=== PATIENT | female | born 1990 | race Caucasian/White ===

== ENCOUNTER 2024-01-20 19:36 | Emergency (ER) | payer OTHER, SELFPAY ==
[2024-01-20 19:37] VITALS: BMI 33.9
[2024-01-20 19:51] VITALS: BP 126/85; PULSE 88; RESP 18; TEMP 36.6; O2SAT 98
--- NOTE | 2024-01-20 19:56 | XR_ITS ---
Examination: OB Transvaginal ultrasound of the pelvis, complete Technique: Transvaginal sonographic images pelvis performed using hodges scale imaging Exam date and time: January 20, 2024 1011 hrs. Indications: Vaginal bleeding beginning 3 days ago worse today Findings: Uterus 9.8 x 4.9 x 5.3 cm anteverted No uterine mass or intrauterine gestation Endometrial stripe 0.8 cm Right ovary 2.5 x 2.3 x 1.9 cm arterial flow Left ovary 2.8 x 1.6 x 1.6 cm arterial flow No fluid in the cul-de-sac Impression: Negative examination.
--- NOTE | 2024-01-20 20:00 | PD.EDVAGBL ---
ED OB Contraction Preg RMI/HPI General Chief complaint: Vaginal Bleeding Stated complaint: VAGINAL BLEEDING APPROX 5 WEEKS PREG Time Seen by Provider: 01/20/24 19:55 Arrival date/time: 01/20/24 19:36 33F at approximately 5 weeks and with history of asthma presents to ED with 1 day of vaginal bleeding, but denies pain. Limitations: no limitations Related Data Home Medications ?Medication ?Instructions ?Recorded ?Confirmed vitamins-iron fumarate 27 1 tab PO QDAY 12/23/18 08/11/23 mg iron-folic acid 0.8 mg tablet ( Vitamin) Previous Rx's ?Medication ?Instructions ?Recorded hydrocortisone 2.5 % topical cream 1 applic LA BID PRN hemorrhoids 08/12/23 with perineal applicator #30 grams ibuprofen 600 mg tablet 600 mg PO Q6H PRN pain #30 tabs 08/12/23 Allergies Allergy/AdvReac Type Severity Reaction Status Date / Time No Known Allergies Allergy Verified 01/20/24 19:39 Review of Systems Review of Systems Systems Reviewed: All systems reviewed, normal except as documented Constitutional Constitutional: Reports system reviewed and no additional complaints, except as documented, Denies fever(s) and Denies headache(s) ENT Ears, Nose, Mouth, and Throat: Denies disequilibrium and Denies headache(s) Cardiovascular Cardiovascular: Reports system reviewed and no additional complaints, except as documented, Denies chest pain and Denies dyspnea Respiratory Respiratory: Reports system reviewed and no additional complaints, except as documented, Denies cough and Denies dyspnea Gastrointestinal Gastrointestinal: Reports system reviewed and no additional complaints, except as documented, Denies abdominal pain, Denies nausea and Denies vomiting Genitourinary Genitourinary: Reports as per HPI and Reports abnormal vaginal bleeding Neurologic Neurologic: Reports system reviewed and no additional complaints, except as documented, Denies confusion, Denies disequilibrium and Denies headache(s) Psychiatric Psychiatric: Denies confusion Past Medical History Past Medical History NEUROLOGIC: Negative Neurological Disorders CARDIAC: Negative Cardiac Disorders or Congestive Heart Failure RESPIRATORY: Positive Asthma; Negative Chronic Obstructive Pulmonary Disease (COPD) GASTROINTESTINAL: Positive Gastrointestinal Disorders and Obesity; Negative Hepatitis or Colorectal Cancer GENITOURINARY: Positive Genitourinary Disorders (UTI); Negative Renal Disease or Prostate Cancer REPRODUCTIVE: Negative Breast Cancer, Endometriosis, Genital Herpes, Gonorrhea, Pelvic Inflammatory Disease, Previous Pregnancies, Syphilis, Testicular Cancer or Uterine Prolapse MUSCULOSKELETAL: Negative Musculoskeletal Disorders, Bone Cancer or Carpal Tunnel Syndrome ENT: Negative Cataracts ENDOCRINE: Positive Endocrine Disorders (ADDENOIDS REMOVED.); Negative Diabetes Mellitus Type 1 or Diabetes Mellitus Type 2 HEMATOLOGIC: Negative Blood Disorders, Anemia or Clotting Problems OTHER HISTORY: Positive Hospitalization ([facility] REMOVAL AND DELIVERY); Negative Autoimmune Disease, Down Syndrome, Developmental Delay, Shingles, Falls, Blood Transfusions, Blood Transfusion Reaction, Anesthesia Reactions, Organ Transplant, Chemotherapy, Radiation Therapy, Hyperbaric Therapy, MRSA, VRSA, Vancomycin-Resistant Enterococci, Human Immunodeficiency Virus (HIV), Chicken Pox, Measles, Mumps, Rubella (Pashto Measles), Pertussis, Clostridium Difficile, Cancer, Breast Cancer, Cervical Cancer, Colorectal Cancer, Lung Cancer, Ovarian Cancer, Prostate Cancer or Testicular Cancer Family History FAMILY HISTORY: Positive Family Respiratory Disorders (BRONCHITIS, COPD, PNA- MOTHER), Family Cardiac Disorders (HEART ATTACK MATERNAL FAMILY) and Family Cancer (MOTHER BREAST CA); Negative Family Psychiatric Problems, Family Gastrointestinal Problems, Family Surgery or Family Anesthesia Reaction Surgical History SURGICAL: Positive Adenoidectomy; Negative Cardiac Surgery, Open Heart Surgery, Coronary Artery Bypass Graft, Valve Replacement, Vascular Surgery, Coronary Stent, Cardiac Catheterization, Pacemaker, Angiogram, Auto Implanted Cardiovert Defib, Carotid Endarterectomy, Endocrine Surgery, Thyroidectomy, Ear Surgery, Tympanostomy Tube, Eye Surgery, Nose Surgery, Oral Surgery, Tonsillectomy, Cochlear Implant, Corneal Transplant, Throat Surgery, Abdominal Surgery, Tracheostomy, Gastric Bypass Surgery, Gastrostomy, Bowel Surgery, Nephrectomy, Transurethral Resection, Joint Replacement, Amputation, Open Reduction Internal Fixation, Arthroscopy, Neurologic Surgery, Brain Shunt, Mastectomy, Lumpectomy, Hysterectomy, Tubal Ligation, Section or Organ Transplant Social History SMOKING STATUS: Never smoker ED Exam General Limitations: Present no limitations General appearance: Present alert and in no apparent distress Head Head exam: Present atraumatic Eye Eye exam: Present normal appearance, PERRL and EOMI ENT ENT exam: Present normal exam, normal oropharynx and mucous membranes moist Neck Neck exam: Present normal inspection, full ROM and trachea midline Chest Chest inspection: Present normal inspection and symmetric chest wall rise Respiratory Respiratory exam: Present normal lung sounds bilaterally Cardiovascular Cardiovascular exam: Present regular rate, normal rhythm and normal heart sounds Abdominal Exam Abdominal exam: Present soft and normal bowel sounds Extremities Exam Extremities exam: Present normal inspection and full ROM Back Exam Back exam: Present normal inspection and full ROM Neurological Exam Neurological exam: Present alert, oriented X3 and CN II-XII intact Psychiatric Psychiatric exam: Present normal affect and normal mood Skin Skin exam: Present warm, dry, intact and normal color Course Quality Measures none Orders Category Date Time Status US OB transvaginal Stat Exams 01/20/24 19:56 Completed ABO/RH Type Stat Lab 01/20/24 20:13 Completed Beta HCG,Quantitative Stat Lab 01/20/24 20:13 Completed CBC Stat Lab 01/20/24 20:13 Completed CMP [Comprehensive Metabolic Panel] Stat Lab 01/20/24 20:13 Completed UA [Urinalysis] Stat Lab 01/20/24 20:33 Completed Urine Culture Stat Lab 01/20/24 20:33 Received Vital Signs Vital signs: Vital Signs Temperature 98 F 01/20/24 19:51 Pulse Rate 88 01/20/24 19:51 Respiratory Rate 18 01/20/24 19:51 Blood Pressure 126/85 H 01/20/24 19:51 Pulse Oximetry (%) 98 01/20/24 19:51 Oxygen Delivery Method Room Air 01/20/24 19:51 O2 at 98% on RA and WNLs Vaginal Bleeding MDM Narrative MDM Narrative: 33F at approximately 5 weeks and with history of asthma presents to ED with 1 day of vaginal bleeding, but denies pain. Physical exam reveals no pelvic tenderness. Patient is afebrile, alert, but crying. US no IUP. Beta HCG around 900. No anemia. UA lots of RBCs. Given director of counseling to have repeat HCG in about 48-72 hours to see trend. Patient data External records reviewed:: [facility] [place] previous records Clinical information provided by:: patient Social determinants that could affect healthcare access:: none Patient has the following chronic illnesses:: asthma How is presenting disease/condition affected by chronic disease/condition?: uneffected by Evaluation data The following diagnostics were reviewed and interpreted by me:: lab results and radiology exam(s) Lab and/or radiology exams considered but not ordered:: ordered Interpretation Summary: above Medications / Prescriptions Medications or Prescriptions considered but not ordered:: not ordered Medication administrations:: n/a Consultations Consultation(s) initiated? (list below): No Diagnosis Vaginal Bleeding Differential Diagnosis: missed , threatened , dysfunctional uterine bleeding, menometrorrhagia, incomplete , ectopic without intrauterine and vaginal bleeding Most likely diagnosis given after review of the tests above:: vaginal bleeding Admission Indicated Admission indicated?: not indicated Admission Request Was there a request for admission?: No Disposition Plan Disposition Plan: Discharge Discharge Attestation Discharge Attestation: The patient and all family members were given an opportunity to ask questions and understood the discharge instructions. Discharge instructions specifically effects, indications for sooner follow up or return to the emergency department, and the expected course of current diagnosis. Patient condition: Stable Discharge Plan Plan Patient Disposition: HOME (Self Care) Disposition Comment: Stable Prescriptions/Referrals Prescriptions/Med Rec: No Action Vitamin 27 mg iron- 0.8 mg Tablet 1 tab PO QDAY ibuprofen 600 mg tablet 600 mg PO Q6H PRN (Reason: pain) Qty: 30 0RF hydrocortisone 2.5 % cream with perineal applicator 1 applic LA BID PRN (Reason: hemorrhoids) Qty: 30 0RF Referrals: No Primary/Family,Physician [Primary Care Provider] - In 1 week Problem List Clinical Impression: Vaginal bleeding Patient/Caregiver Discharge Instructions Additional Instructions: Please follow-up with PCP/OBGYN within 24-48 hours and return immediately if symptoms worsen. Recommend repeat HCG in 48-72 hours to see trend. Print Language: Kuwaiti Stand Alone Forms: Patient Portal Info Letter MARILYN/JESSIE Supervising Physician MARILYN/JESSIE Supervising Physician: Dr. Zamudio
[2024-01-20 20:52] LABS: Basophils # (Auto) 0.1 Thou/mm3 (0.0-0.2); Basophils % (Auto) 1 % (0-2.5); Eosinophils # (Auto) 0.1 Thou/mm3 (0.0-0.5); Eosinophils % (Auto) 1 % (0-10); Hematocrit 40.7 % (36.0-46.0); Hemoglobin 13.6 g/dL (12.0-16.0); Immature Granulocytes % (Auto) 0 % (0-0); Immature Granulocytes Auto 0.02 Thou/mm3 (0.00-0.00); Lymphocytes # (Auto) 2.7 Thou/mm3 (1.0-4.8); Lymphocytes % (Auto) 31 % (10-50); Mean Corpuscular HGB Conc 33.4 g/dl (31.0-37.0); Mean Corpuscular Hemoglobin 30.3 pg (25.0-35.0); Mean Corpuscular Volume 91 fL (80-100); Monocytes # (Auto) 0.5 Thou/mm3 (0.0-0.8); Monocytes % (Auto) 6 % (0-12); Neutrophils # (Auto) 5.3 Thou/mm3 (1.8-7.7); Neutrophils % (Auto) 61 % (37-80); Nucleated Red Blood Cell % 0 /100 WBC (0); Platelet Count 235 Thou/mm3 (140-440); RDW Standard Deviation 40.9 fL (36.4-46.3); Red Blood Count 4.49 Miln/mm3 (4.00-5.20); White Blood Count 8.7 Thou/mm3 (3.6-11.0)
[2024-01-20 20:59] LABS: Alanine Aminotransferase 15 U/L (10-49); Albumin, Serum 4.6 gm/dL (3.5-5.0); Albumin/Globulin Ratio 1.7 (1.2-2.2); Alkaline Phosphatase 53 U/L (46-116); Anion Gap 5 (7-16); Aspartate Amino Transferase 16 U/L (0-34); BUN/Creatinine Ratio 14 Ratio (12-20); Beta HCG,Quantitative 996 mIU/mL (<5.0); Bilirubin,Total 0.3 mg/dL (0.3-1.2); Blood Urea Nitrogen 11 mg/dL (9-23); Calcium 10.1 mg/dL (8.3-10.6); Calcium (Corrected) 10.1 mg/dL (8.5-10.1); Carbon Dioxide 27.1 mMol/L (20.0-31.0); Chloride 104 mMol/L (98-107); Creatinine (Component) 0.8 mg/dL (0.6-1.3); Estimated Creatinine Clearance 117.4 mL/min (>60); Globulin 2.7 gm/dL (2.3-3.5); Glucose 93 mg/dL (74-106); Osmolality,Calculated 271 (275-295); Sodium 136 mMol/L (136-145); Total Protein 7.3 gm/dL (5.7-8.2); eGFR > 60 See Note
[2024-01-20 21:09] LABS: Collection Type, Urine Clean Catch
[2024-01-20 21:16] LABS: Bilirubin,Urine Negative (Negative); Blood,Urine 3+ (Negative); Clarity,Urine Turbid (Clear/Hazy); Color,Urine Lt-Brown (Lt Yel-Yel); Glucose, Urine Negative (Negative); Ketones,Urine Negative (Negative); Leukocyte Esterase,Urine Positive (Negative); Nitrite,Urine Negative (Negative); PH,Urine 6.5 (5.0-7.0); Protein,Urine 1+ (Neg - Trace); RBC,Urine 2151 /hpf (0-3); Specific Gravity,Urine 1.023 (1.001-1.035); Squamous Epithelial Cell,Urine 8 /hpf (0-5); Urobilinogen,Urine Negative mg/dL (0.0-1.0); WBC,Urine 41 /hpf (0-5)
--- NOTE | 2024-01-20 22:28 | PC.NURSE ---
NA when called pt @ 1871 from lobby and outside for revitals
== END 2024-01-20 23:36 | disposition home or self-care (01) ==
PROVIDERS: Physician Assistant; Emergency Provider Emergency Medicine
DX: N93.9 Abnormal uterine and vaginal bleeding, unspecified (principal)
CPT/HCPCS: 36415; 76817; 80053; 81001; 84702; 85025; 86900; 86901; 87086; 99284

== ENCOUNTER 2025-02-26 15:09 | Inpatient (IN) | payer OTHER, SELFPAY ==
--- NOTE | 2025-02-25 08:41 | PC.NURSE ---
PT CALLED, ASKED FOR BED FOR IOL, INFORMED OF NO BEDS AVAILABLE, WILL CALL ONCE BED BECOMES AVAILABLE, EDUCATED ON KICK COUNT AND LABOR PRECAUTIONS, PT VERBALIZED UNDERSTANDING
--- NOTE | 2025-02-25 16:22 | PC.NURSE ---
LATE ENTRY; PT CALLED ASKING FOR BED AVAILABILITY FOR IOL, INFORMED OF STILL NO BED AVAILABLE AT THIS TIME, ASKED PT TO CALL BACK AT 1800, PT VERBALIZED UNDERSTANDING
--- NOTE | 2025-02-25 17:38 | PC.NURSE ---
PT CALLED, INFORMED OF NO BEDS AVAILABLE AT THIS TIME FOR IOL, INFORMED OF 1PT AHEAD OF HER, MAY RECEIVE CALL LATER IN NIGHT OR PT TO CALL TOMORROW MORNING AT 0730, EDUCATED ON KICK COUNT AND LABOR PRECAUTIONS, PT VERBALIZED UNDERSTANDING
[2025-02-26] VITALS (7 sets, daily range): BP systolic 100–124; BP diastolic 56–74; PULSE 87–106; RESP 17; TEMP 36.6; BMI 39.7
[2025-02-26] MEDS: RINGERS LACTATED 1000 ML 1,000 ML 100 ML IV (15:35)
--- NOTE | 2025-02-26 15:41 | XR_ITS ---
EXAMINATION: age Limited TECHNIQUE: Limited transabdominal sonographic images pelvis Date and time: February 26, 2025, 1558 hours INDICATIONS: Labor evaluation unknown presentation. FINDINGS: Viable intrauterine gestation cephalic presentation spine maternal right Cardiac motion 143 bpm IMPRESSION: Viable intrauterine gestation cephalic presentation
[2025-02-26 16:03] LABS: Basophils # (Auto) 0.0 Thou/mm3 (0.0-0.2); Basophils % (Auto) 1 % (0-2.5); Eosinophils # (Auto) 0.0 Thou/mm3 (0.0-0.5); Eosinophils % (Auto) 1 % (0-10); Hematocrit 39.5 % (36.0-46.0); Hemoglobin 13.5 g/dL (12.0-16.0); Immature Granulocytes Auto 0.04 Thou/mm3 (0.00-0.00); Lymphocytes # (Auto) 1.7 Thou/mm3 (1.0-4.8); Lymphocytes % (Auto) 20 % (10-50); Mean Corpuscular HGB Conc 34.2 g/dl (31.0-37.0); Mean Corpuscular Hemoglobin 30.6 pg (25.0-35.0); Mean Corpuscular Volume 90 fL (80-100); Monocytes # (Auto) 0.5 Thou/mm3 (0.0-0.8); Monocytes % (Auto) 6 % (0-12); Neutrophils # (Auto) 6.1 Thou/mm3 (1.8-7.7); Neutrophils % (Auto) 73 % (37-80); Nucleated Red Blood Cell # 0.00 Thou/mm3 (0.00-0.00); Nucleated Red Blood Cell % 0 /100 WBC (0); Platelet Count 204 Thou/mm3 (140-440); RDW Standard Deviation 47.1 fL (36.4-46.3); Red Blood Count 4.41 Miln/mm3 (4.00-5.20); White Blood Count 8.4 Thou/mm3 (3.6-11.0)
[2025-02-26] MEDS: Ampicillin Inj 2,000 MG in SODIUM CHLORIDE 0.9% (POP) 100 ML 100 MG IV (16:31)
[2025-02-26 16:41] LABS: Syphilis Nonreactive (Nonreactive)
--- NOTE | 2025-02-26 17:21 | PD.LDHP ---
Documentation for date of: 02/26/25 OB Labor/Induct. HPI History of Present Illness History of present illness: H and P dictated on STAT line in Nuance #9: Dictation # [id number] Labs Labs: Positive: Rubella Titre and Group Beta Strep, Negative: RPR, Hepatitis B, HIV, Chlamydia and Gonorrhea and Unknown: Herpes Type 1, Herpes Type 2 and Covid-19 Meds Home Medications and Allergies Home Medications ?Medication ?Instructions ?Recorded ?Confirmed ?Type vit no.95-ferrous 1 tab PO DAILY 02/26/25 02/26/25 History fumarate 28 mg-folic acid 800 mcg tablet () Allergies Allergy/AdvReac Type Severity Reaction Status Date / Time No Known Allergies Allergy Verified 02/26/25 16:45 OB Exam Physical Exam Vital signs: Pulse BP 97 116/74 02/26/25 16:54 02/26/25 16:54 OB Results Labs 02/26/25 15:35 Labs: Short CBC 02/26/25 Range/Units 15:35 WBC 8.4 (3.6-11.0) Thou/mm3 Hgb 13.5 (12.0-16.0) g/dL Hct 39.5 (36.0-46.0) % Plt Count 204 (140-440) Thou/mm3
--- NOTE | 2025-02-26 17:33 | ESHP_ITS ---
RE: AMADOR FRANKEL : 1990 DATE OF ADMISSION: 02/26/25 HISTORY OF PRESENT ILLNESS: This is a 34-year-old 4, para 2-0-1-2, with due date of 03/03 with intrauterine at 39 weeks and 2 days who presents for induction of labor for macrosomia. The patient has a history of a prior vaginal delivery, which was uncomplicated, delivering a 9 pound 2 ounce baby without problem. Her most recent ultrasound on 02/21 shows an estimated weight of 9 pounds. She reports occasional contractions. No bleeding or leaking. She reports normal movement. ALLERGIES: NO KNOWN DRUG ALLERGIES. MEDICATIONS: multivitamin 1 p.o. daily. SOCIAL HISTORY: She is . She denies any alcohol, drug use, or smoking. FAMILY HISTORY: Breast cancer, heart disease, alcoholism. PAST MEDICAL HISTORY: Urinary tract infection, gastroesophageal reflux disease, asthma. OBSTETRIC HISTORY: 2018: 40-week normal vaginal delivery, 7 pound female, no complications. 08/2023:40 week, Normal vaginal delivery, 9 pound 2 ounce, nuchal cord x2, no complications. PAST SURGICAL HISTORY: Denies. REVIEW OF SYSTEMS: She denies any chest pain, palpitations, cough, fever, shortness of breath, swelling, pain, or lower extremity pain. She denies any headache, change of vision, or right upper quadrant pain. PHYSICAL EXAMINATION: VITAL SIGNS: Blood pressure 119/74, heart rate 88, respirations 18, temperature 98.6, weight 246 pounds. HEENT: Oropharynx and sclerae clear. LUNGS: Clear to auscultation bilaterally. HEART: Regular rate and rhythm. ABDOMEN: Gravid, consistent with estimated weight 9.5 pounds. PELVIC: Exam per RN notes, long and closed. Ultrasound confirms cephalic. EXTREMITIES: Nontender. SKIN: No gross rashes or lesions. NEUROLOGIC: No focal deficit. ASSESSMENT: Intrauterine at 39 weeks and 2 days. macrosomia. Group B strep vaginal-rectal swab positive. PLAN: Induction of labor. Informed consent was obtained. The patient was made aware of the risks, complications, alternatives, and benefits of the proposed procedure, and she agrees. She is aware of the risks of operative vaginal delivery and delivery, and she agrees with these modes of delivery if indicated. We discussed macrosomia and the risk of shoulder dystocia and brachial plexus injury as well as other injuries related to shoulder dystocia. She is aware that she has the right to request a delivery at any time. She is aware that vaginal delivery and operative vaginal delivery would increase the risk of shoulder dystocia and brachial plexus injury versus having a delivery. I explained to her that the ultrasound is only an estimate and can be off by as much as 1 pound; therefore, the current estimate of the weight can be anywhere from 8.5 to 10.5 pounds. The patient verbalized understanding. Since she had a prior 9 pound 2 ounce vaginal delivery without complication, she is comfortable with proceeding with induction. All questions were answered. DT: 17:20:48 TT: 17:32:00 Ref: [id number] - TID: [id number] [email or web address]
[2025-02-26] MEDS: Ampicillin Inj 1,000 MG in SODIUM CHLORIDE 0.9% (Popper) 50 ML 50 MG IV (20:34)
[2025-02-27] VITALS (109 sets, daily range): BP systolic 88–177; BP diastolic 51–101; PULSE 74–104; RESP 16; TEMP 36.7–36.8; O2SAT 89–100
[2025-02-27] MEDS: Ampicillin Inj 1,000 MG in SODIUM CHLORIDE 0.9% (Popper) 50 ML 50 MG IV ×4 (00:40→12:23)
[2025-02-27] MEDS: OXYTOCIN in NS 30 units 30 UNIT/500 ML BAG IV (08:34)
--- NOTE | 2025-02-27 11:29 | PD.LDPN ---
Documentation for date of: 02/27/25 OB Labor Progress Note Pain Control Comments: No complaints, comfortable with epidural Pelvic Exam Dilation (cm): 8 Effacement (%): 90 station: 0 Amniotic membrane status: Ruptured Comments: clear Contractions Monitor mode: External Contraction frequency: 1.5-2.5 Contraction intensity: Moderate Status status: Category l Assessment and Plan Comments: Continue augmenation with Pitocin Anticipate explosive ordnance technician Aurora notified that we will need extra hands at delivery should we encounter a shoulder dystocia.
[2025-02-27] MEDS: OXYTOCIN in NS 20 units 20 UNIT/1,000 ML BAG 125 UNIT IV (13:30)
[2025-02-27] MEDS: BENZO/LANO/ALOE (Dermoplast) 60 GM CAN 1 SPRAY TOP (13:42)
--- NOTE | 2025-02-27 13:44 | ESDS_ITS ---
DS: Providers Provider Date of admission: 02/26/25 15:09 Primary care physician: Physician No Primary/Family Admitting Provider: Tad Don MD Attending Provider on Admission: Tad Don MD Attending Provider on DC: Tad Don MD Discharging Provider: Tad Don MD DS: Diagnosis Problem List Completed Was Problem List Reviewed/Reconciled?: Yes Summary/Hosp Course Brief History: H and P dictated on STAT line in Nuance #9: Dictation # [id number] Peripartum Data Delivery Method: Normal Vaginal Delivery Episiotomy Description: None Time Spent with Patient Time attestation: Total time spent providing and/or coordinating discharge services: Exam Vital Signs Temp Pulse Resp BP Pulse Ox O2 Del Method 98.2 F 82 16 111/67 99 Room Air 02/27/25 04:25 02/27/25 13:38 02/27/25 04:25 02/27/25 13:38 02/27/25 11:25 02/27/25 04:25 Discharge Plan Plan Patient Disposition: HOME (Self Care) Patient condition on transfer: Stable Prescriptions/Referrals Prescriptions/Med Rec: New ibuprofen 600 mg tablet 600 mg PO Q6H PRN (Reason: pain) Qty: 30 0RF Continued hydrocortisone 2.5 % cream with perineal applicator 1 applic LA BID PRN (Reason: hemorrhoids) Qty: 30 0RF PNV no.95-ferrous fumarate-FA [] 28 mg iron- 800 mcg tablet 1 tab PO DAILY Patient Comments: TAKE 1 TABLET BY MOUTH EVERY DAY Referrals: No Primary/Family,Physician [Primary Care Provider] Patient/Caregiver Discharge Instructions Discharge Activity: activity as tolerated Other Discharge Activity Instructions:: Follow up office 6 weeks. Education Materials: After a Vaginal , After Delivery Concerns, Breast Care After Print Language: Guyanese Stand Alone Forms: Debi Award Info., Patient Portal Info Letter Discharge Order Discharge Orders: Discharge (Routine); Ordered 02/28/25 Ordered By: Tad Don Planned Discharge Date 02/28/25
[2025-02-27] MEDS: IBUPROFEN TAB 400 MG TABLET 800 MG PO (15:54)
[2025-02-27] MEDS: HYDROCORTISONE ACET CR 2.5% 30 GM TUBE PR (16:50)
[2025-02-27 20:14] LABS: Basophils # (Auto) 0.0 Thou/mm3 (0.0-0.2); Basophils % (Auto) 0 % (0-2.5); Eosinophils # (Auto) 0.0 Thou/mm3 (0.0-0.5); Eosinophils % (Auto) 0 % (0-10); Hematocrit 35.0 % (36.0-46.0); Hemoglobin 12.1 g/dL (12.0-16.0); Immature Granulocytes Auto 0.05 Thou/mm3 (0.00-0.00); Lymphocytes # (Auto) 1.4 Thou/mm3 (1.0-4.8); Lymphocytes % (Auto) 14 % (10-50); Mean Corpuscular HGB Conc 34.6 g/dl (31.0-37.0); Mean Corpuscular Hemoglobin 30.9 pg (25.0-35.0); Mean Corpuscular Volume 90 fL (80-100); Monocytes # (Auto) 0.5 Thou/mm3 (0.0-0.8); Monocytes % (Auto) 5 % (0-12); Neutrophils # (Auto) 8.2 Thou/mm3 (1.8-7.7); Neutrophils % (Auto) 80 % (37-80); Nucleated Red Blood Cell # 0.00 Thou/mm3 (0.00-0.00); Nucleated Red Blood Cell % 0 /100 WBC (0); Platelet Count 164 Thou/mm3 (140-440); RDW Standard Deviation 47.0 fL (36.4-46.3); Red Blood Count 3.91 Miln/mm3 (4.00-5.20); White Blood Count 10.2 Thou/mm3 (3.6-11.0)
[2025-02-28 00:19] VITALS: BP 105/69; PULSE 88; RESP 16; TEMP 36.7; O2SAT 97
[2025-02-28] MEDS: IBUPROFEN TAB 400 MG TABLET 800 MG PO (03:15)
[2025-02-28 04:30] VITALS: BP 104/74; PULSE 94; RESP 18; TEMP 36.7; O2SAT 96
--- NOTE | 2025-02-28 05:39 | OBDSUM_ITS ---
Data ([place]obos) Data Hx Section: No : 4 Term: 0 : 0 Livin Abortions: Spontaneous & Theraputic: 0 Delivery Data (Cobos) Labor Data Initiation of labor: Induction Induction/Augmentation Agent: Cervidil, Pitocin and Artificial ROM ROM date: 02/27/25 ROM time: 11:23 Amniotic membrane rupture type: Artificial Amniotic fluid description: Clear Delivery Data EDC: 03/03/25 EDC calculated by:: LMP/early US confirmation Onset of labor date: 02/27/25 Onset of labor time: 05:23 Complete dilation date: 02/27/25 [place] delivery date: 02/27/25 delivery time: 13: Gestational age (weeks): 39 Gestational age (days): 3 Placenta delivery date: 02/27/25 Placenta delivery time: 13: Delivered by: Tad Don Delivery nurse: emi Cortez nurse: aisha Beef Lugger at delivery: No Support person(s) at delivery: FOB Other staff at delivery: Coni Ramírez RN, Joshua De La Fuente spooling machine operator Method Delivery method: Normal Vaginal Delivery Presentation: Vertex position: OA Anesthesia Type Anesthesia Type: Epidural Placenta Placenta delivery description: Spontaneous Cord blood sent to lab: Yes cord blood collection: Cord Blood Type Episiotomy Episiotomy description: None Lacerations #1: Perineal: 1st degree Perineal repair Sutures used for repair: 3.0 Chromic EBL Estimated blood loss (ml): 300 Umbilical Cord cord description: 3 Vessels Complications Complications: None Data (Cobos) [place] Data order: 1 Starkweather's gender: Female Identification band number: [id number] weight (gms): 9 lb 5.209 oz Weight (pounds): 9 lbs and 5.2 ozs [place] length: 21.5 in 1 minute: 8 5 minutes: 9
--- NOTE | 2025-02-28 06:36 | ESPR_ITS ---
RE: AMADOR FRANKEL : 1990 DATE OF SERVICE: 02/28/2025 SUBJECTIVE: day #1. The patient denies any problem or complaint. OBJECTIVE: VITAL SIGNS: Blood pressure 104/74, heart rate 94, respirations 18, temperature is 98.1 and pulse ox is 96% on room air. LUNGS: Clear to auscultation bilaterally. HEART: Regular rate and rhythm. ABDOMEN: Fundus nontender. EXTREMITIES: Nontender. LABORATORY DATA: Hemoglobin pre-delivery is 13.5, post-delivery is 12.1. ASSESSMENT: day #1, status post spontaneous vaginal delivery. PLAN: Discharge home when baby is cleared. Discharge instructions given. Follow up in the office in 6 weeks. DT: 06:20:47 TT: 06:35:00 Ref: [id number] - TID: [id number]
[2025-02-28 08:12] VITALS: BP 116/75; PULSE 97; RESP 18; TEMP 36.7; O2SAT 97
[2025-02-28] MEDS: ACETAMINOPHEN 325 MG TABLET 650 MG PO (08:23)
[2025-02-28] MEDS: DOCUSATE SOD 100 MG CAPSULE PO (08:23)
[2025-02-28 11:48] VITALS: BP 122/78; PULSE 90; RESP 19; TEMP 36.7; O2SAT 97
== END 2025-02-28 14:35 | disposition home or self-care (01) | DRG 807 ==
LOC: S4SX 02-27 13:40 → S4NX 02-27 17:18
PROVIDERS: Admitting Provider Specialist; Visit Provider Specialist
DX: O36.63X0 Maternal care for excessive fetal growth, third trimester, not applicable or unspecified (principal); Z37.0 Single live birth; O99.824 Streptococcus B carrier state complicating childbirth; O70.0 First degree perineal laceration during delivery; Z3A.39 39 weeks gestation of pregnancy
CPT/HCPCS: 36415; 76815; 85025; 86780; 86850; 86900; 86901; J0290; J2590; J2795; J3010; J7050; J7120; A9270